=== PATIENT | male | born 1970 | race Caucasian/White ===

== ENCOUNTER 2020-03-09 12:20 | Emergency (ER) | payer BC ==
[~2020-03-09] VITALS: Ht 170.2 cm; Wt 117.0 kg
--- NOTE | 2020-03-09 12:44 | NUR ---
PATIENT ARRIVES WITH WITH MULTIPLE COMPLAINTS. HE IS HAVING SOB THAT HAS BEEN ONGOING FOR ONE MONTH THAT IN SPITE OF HIS PRESCRIBED INHALER HE CAN NOT RESOLVE HIS SOB. PATIENT ALSO STATES HE IS HAVING LEFT HIP PAIN RECENTLY OF UNKNOWN ORIGIN. AND, HE STATES HE IS HAVING A BUMP IN FRONT OF HIS EAR THAT IS SORE AND TENDER. GETTING PATIENT IN GOWN AND WILL FURTHER ASSESS.
[2020-03-09] MEDS ORDERED: AZIT500T2 PO (12:58)
[2020-03-09] MEDS ORDERED: FLUT1AER INH (12:58)
[2020-03-09] MEDS ORDERED: ALBU0.63 NEB (12:58)
[2020-03-09] MEDS ORDERED: CLON0.5T PO (12:58)
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
[2020-03-09 13:38] LABS: MEAN CORPUSCULAR HEMOGLOBIN 29.9 pg (27.5-34.5); MEAN CORPUSCULAR HGB CONC 33.5 g/dL (33.2-36.2); MEAN CORPUSCULAR VOLUME 89.4 fL (81-97); MEAN PLATELET VOLUME 7.8 fL (7.4-10.4); PLATELET COUNT 221 x10^3/uL (130-400); RED BLOOD COUNT 5.62 x10^6/uL (4.38-5.82); RED CELL DISTRIBUTION WIDTH 13.6 % (9.4-14.8)
[2020-03-09 13:46] LABS: ALBUMIN 3.6 g/dL (3.4-5.0); ANION GAP 6 mmol/L (5-15); CALCIUM 9.1 mg/dL (8.5-10.1); CHLORIDE 109 mmol/L (98-107)
[2020-03-09 13:50] LABS: ALANINE AMINOTRANSFERASE 51 U/L (12-78); ALKALINE PHOSPHATASE 113 U/L (45-117); CREATININE 0.89 mg/dL (0.7-1.3); TOTAL PROTEIN 7.2 g/dL (6.4-8.2)
[2020-03-09 14:05] LABS: MD YES
[2020-03-09 14:08] LABS: <PLATELET ESTIMATE> ADEQUATE; <PLT MORPHOLOGY> NORMAL PLT MORPH; <RBC MORPHOLOGY> NORMAL; EOS#(MANUAL) 1.96 x10^3/uL (0.0-0.4); EOS% (MANUAL) 17 % (1-7); LYMPHS% (MANUAL) 13 % (22-44); MONOS#(MANUAL) 0.23 x10^3/uL (0.3-2.7); MONOS% (MANUAL) 2 % (2-9); SEG#(MANUAL) 7.82 x10^3/uL (1.8-6.8); SEGS% (MANUAL) 68 % (42-75)
[2020-03-09 14:34] VITALS: BP 132/78
--- NOTE | 2020-03-09 14:35 | NUR ---
REVIEWED PATIENT DISCHARGE AND APPTS, SHOWS UNDERSTANDING
== END 2020-03-09 14:43 | disposition home or self-care (01) ==
LOC: ED 13:11
DX: B34.9 Viral infection, unspecified (principal); Z20.828 Contact with and (suspected) exposure to other viral communicable diseases; R05 Cough; G89.29 Other chronic pain; M25.551 Pain in right hip; R07.89 Other chest pain; R94.31 Abnormal electrocardiogram [ECG] [EKG]
CPT/HCPCS: 36415; 71045; 73502; 80053; 85025; 93005; 99285; U0001